=== PATIENT | female | born 1990 | race Caucasian/White ===

== ENCOUNTER 2019-05-26 08:40 | Emergency (ER) | payer OTHER ==
[~2019-05-26] VITALS: Ht 162.6 cm; Wt 48.0 kg
[~2019-05-26 08:40] MED LIST: ACET500C5 PO; FAMO-96 PO
[2019-05-26 08:49] VITALS: BP 126/74; PULSE 113; RESP 20; Ht 162.6 cm; Wt 48.0 kg
[2019-05-26] MEDS ORDERED: KETOROLAC 30 MG INJ IV STA (09:15)
[2019-05-26] MEDS ORDERED: ONDANSETRON 4 MG INJ IV STA (09:15)
[2019-05-26] MEDS ORDERED: SOD CHLORIDE 0.9% 1,000 ML IV STA (09:15)
[2019-05-26] MEDS ORDERED: FAMOTIDINE 20 MG INJ IV STA (09:15)
== END 2019-05-26 11:03 | disposition home or self-care (01) ==
LOC: FTE 08:40
DX: R10.13 Epigastric pain (principal); R11.0 Nausea
CPT/HCPCS: 36415; 76705; 80053; 81001; 81025; 83690; 85025; 96361; 96374; 96375; J1885; J2405; J7030; Z7502; Z7610